=== PATIENT | male | born 1950 | race Caucasian/White ===

== ENCOUNTER 2022-08-28 10:00 | Day surgery (SDC) | payer MEDICARE ==
[~2022-08-28] VITALS: Ht 165.1 cm; Wt 87.4 kg
[~2022-08-28 10:00] MED LIST: AMLO1TAB25 PO; ASPI81TA26 PO; LISI5TAB11 PO; SILD100T PO; VITA100T14 PO; ceFAZolin SOD 2 GM in IV 1 EA IV ONE
[2022-08-28] MEDS ORDERED: LR 1,000 ML IV SCH ×2 (10:25→12:30)
[2022-08-28] MEDS ORDERED: LIDOCAINE 1% SDV 30ML VIAL As Ordered ONE (10:36)
[2022-08-28] MEDS ORDERED: BACITRACIN OINTMENT 30GM TUBE As Ordered ONE (10:36)
[2022-08-28] MEDS ORDERED: ceFAZolin 1GM VIAL As Ordered ONE (10:42)
[2022-08-28] MEDS ORDERED: LIDOCAINE 2% 100MG/5ML SDV (FOR ANES.) As Ordered ONE (10:47)
[2022-08-28] MEDS ORDERED: fentaNYL 100 MCG/2 ML INJECTION As Ordered ONE (10:47)
[2022-08-28] MEDS ORDERED: ONDANSETRON 4MG 2ML VIAL As Ordered ONE (10:47)
[2022-08-28] MEDS ORDERED: ACETAMINOPHEN 1000MG 100ML IV BAG As Ordered ONE (10:47)
[2022-08-28] MEDS ORDERED: KETOROLAC 60MG 2ML VIAL As Ordered ONE (10:47)
[2022-08-28] MEDS ORDERED: propofoL 200 MG/20 ML VIAL As Ordered ONE (10:47)
[2022-08-28] MEDS ORDERED: ONDANSETRON 4MG 2ML VIAL IV PRN (12:30)
[2022-08-28] MEDS ORDERED: fentaNYL 100 MCG/2 ML INJECTION IV PRN (12:30)
[2022-08-28] MEDS ORDERED: oxyCODONE 5MG TAB PO PRN (12:30)
[2022-08-28] MEDS ORDERED: HYDROMORPHONE HCL 0.5 MG/ 0.5 ML SYRINGE IV PRN (12:30)
[2022-08-28] MEDS ORDERED: PERCOCET 5MG/325MG TAB PO PRN (12:45)
[2022-08-28] MEDS ORDERED: PERCOCET PO (13:31)
[2022-08-28 13:50] VITALS: BP 165/79; TEMP 97.7; O2SAT 94
== END 2022-08-28 15:28 | disposition home or self-care (01) ==
LOC: M SDC 10:00
PROVIDERS: ATTEND Urology
DX: N43.3 Hydrocele, unspecified (principal); D17.6 Benign lipomatous neoplasm of spermatic cord; I10 Essential (primary) hypertension; Z88.1 Allergy status to other antibiotic agents; Z79.899 Other long term (current) drug therapy; Z79.82 Long term (current) use of aspirin
CPT/HCPCS: 55040; 55520; 88302; 88304; J0131; J0690; J1100; J1885; J2405; J3010

== ENCOUNTER → 2022-12-22 | Outpatient (CLI) | payer MEDICARE ==
[~2022-12-22] MED LIST changes: +ISOVUE-370 76% 100ML VIAL As Ordered ONE; +PERCOCET PO; -ceFAZolin SOD 2 GM in IV 1 EA IV ONE
== END ==
LOC: M RAD 09:04
PROVIDERS: ATTEND Urology
DX: N50.89 Other specified disorders of the male genital organs (principal)
CPT/HCPCS: 74177; Q9967

== ENCOUNTER 2022-12-27 07:04 | Day surgery (SDC) | payer MEDICARE ==
[~2022-12-27] VITALS: Ht 165.1 cm; Wt 89.1 kg
[~2022-12-27 07:04] MED LIST changes: -ISOVUE-370 76% 100ML VIAL As Ordered ONE; +ceFAZolin SOD 2 GM in IV 1 EA IV ONE
[2022-12-27] MEDS ORDERED: LR 1,000 ML IV SCH ×2 (07:55→11:00)
[2022-12-27] MEDS ORDERED: propofoL 200 MG/20 ML VIAL As Ordered ONE (08:13)
[2022-12-27] MEDS ORDERED: LIDOCAINE 2% 100MG/5ML SDV (FOR ANES.) As Ordered ONE (08:13)
[2022-12-27] MEDS ORDERED: fentaNYL 100 MCG/2 ML INJECTION As Ordered ONE (08:13)
[2022-12-27] MEDS ORDERED: MIDAZOLAM INJ 2MG/2ML VIAL As Ordered ONE (08:13)
[2022-12-27] MEDS ORDERED: KETOROLAC 60MG 2ML VIAL As Ordered ONE (09:30)
[2022-12-27] MEDS ORDERED: ACETAMINOPHEN 1000MG 100ML IV BAG As Ordered ONE (09:30)
[2022-12-27] MEDS ORDERED: ONDANSETRON 4MG 2ML VIAL As Ordered ONE (09:30)
[2022-12-27] MEDS ORDERED: MUPIROCIN 2% OINT 22 GM TUBE As Ordered ONE (09:39)
[2022-12-27] MEDS ORDERED: MEPERIDINE 25 MG/ML 1ML VIAL IV PRN (11:00)
[2022-12-27] MEDS ORDERED: ONDANSETRON 4MG 2ML VIAL IV PRN (11:00)
[2022-12-27] MEDS ORDERED: fentaNYL 100 MCG/2 ML INJECTION IV PRN (11:00)
[2022-12-27] MEDS ORDERED: PERCOCET 5MG/325MG TAB PO PRN (11:35)
[2022-12-27] MEDS ORDERED: CEPH500C PO (11:35)
[2022-12-27 12:19] VITALS: BP 170/79; TEMP 98.7; O2SAT 96
== END 2022-12-27 12:23 | disposition home or self-care (01) ==
LOC: M SDC 07:04
PROVIDERS: ATTEND Urology
DX: N44.2 Benign cyst of testis (principal); I10 Essential (primary) hypertension; Z88.0 Allergy status to penicillin; Z79.899 Other long term (current) drug therapy; Z87.891 Personal history of nicotine dependence
CPT/HCPCS: 55110; 88305; J0131; J0665; J1100; J1885; J2250; J2405; J3010